=== PATIENT | female | born 1995 | race American Indian/Alaskan Native ===

== ENCOUNTER 2021-01-01 13:14 | Emergency (ER) | payer SELFPAY ==
[2021-01-01 14:04] VITALS: BP 122/80
--- NOTE | 2021-01-01 14:13 | Emergency Department Report ---
Chief Complaint: Skin Rash Stated Complaint: LFT HAND RASH/COUGH UP BLOOD Time Seen by Provider: 01/01/21 14:08 - HPI History of Present Illness: 25-year-old -[place] female presents to the emergency room complaining of a rash to her left palm of her hand that started today. Patient denies any swelling denies any injury states that it does not itch and does not hurt. Patient also reports that she had coughed up speckled blood of mucus this morning x2. Patient reports she has a history of hypothyroidism and will sometimes have difficulty in swallowing this is been going on for several months. She reports shortness of breath that started this morning. She reports she is currently on levothyroxine 25 mcg daily. - Exam Vital Signs: Vital Signs 01/01/21 14:00 Temperature 99.1 F Pulse Rate 59 L Respiratory 18 Rate Blood Pressure 122/80 O2 Sat by Pulse 100 Oximetry Physical Exam: Gen: alert oriented NAD Cardic: regular rate and rhythm no murmurs appreciated Resp: Clear to auscultation bilateral no wheezing no rales or rhonchi. Abdomen: Soft nontender nondistended normal bowel sounds. Mini neuro: Alert and oriented time 3 Crainal nerve II-IIX intact Skin: Left palm mild erythematous no lesions appreciated no abrasion no lacerations nontender no edema appreciated. MSE screening note: Focused history and physical exam performed. Due to findings the following was ordered: 25-year-old -[place] female presents to the emergency room complaining of a rash to her left palm of her hand that started today. Patient denies any swelling denies any injury states that it does not itch and does not hurt. Patient also reports that she had coughed up speckled blood of mucus this morning x2. Patient reports she has a history of hypothyroidism and will sometimes have difficulty in swallowing this is been going on for several months. She reports shortness of breath that started this morning. She reports she is currently on levothyroxine 25 mcg daily. ED Disposition for MSE Disposition: Z-07 MED SCREENING EXAM-LEFT Is pt being admited?: No Does the pt Need Aspirin: No Condition: Stable Additional Instructions: Rash: Keep it clean and dry no openings or concerns for infection. Follow-up with your primary care provider. Cough with tinged sputum recommend [id number] cough medication such as Robitussin or Mucinex. Follow-up with your primary care provider. Referrals: KIARA WIGGINS MD [Staff Physician] - 3-5 Days SARAH KELLY MD [Staff Physician] - 3-5 Days
== END 2021-01-01 14:20 | disposition left against medical advice (07) ==
LOC: ED 13:14
DX: R21 Rash and other nonspecific skin eruption (principal); Z53.21 Procedure and treatment not carried out due to patient leaving prior to being seen by health care provider